=== PATIENT | female | born 1945 | race Caucasian/White ===

== ENCOUNTER 2017-07-12 07:41 | Day surgery (SDC) | payer MEDICARE, SELFPAY ==
[2017-07-12 08:02] VITALS: BP 143/80; PULSE 71; RESP 16; TEMP 36.9; O2SAT 97; BMI 20.5
--- NOTE | 2017-07-12 09:30 | H&P.OPEN ---
Past Medical/Surgical History - Planned Operation Planned Operative Procedure/s: colonoscopy/open access Date of Operative Procedure: 07/12/17 Permit Signed: No S.O.S: No Is This Patient Having a Total Joint: No - Previous Hospitalizations/Surgeries HX Hospitalizations: Yes HX of Surgeries: gallbladder 2012. lumpectomy left breast. colonoscopy 2011. hospitalized for chest pain 05/2016. left eye detached retina. port placement. port removed Any Problems With Anesthesia: Yes - slow to awaken You/Your Family Experience Fever (Hyperthermia) With Anes: No Cholinesterase deficiency: No - Cardiovascular Hx Chest Pain within Last 2 months: No Hx of Irregular Heartbeat and/or Afib: No Hx Heart Attack: No Hx Congestive Heart Failure: No Hx Rheumatic Fever: No Hx Hypertension: No Hx Internal Defibrillator: No Hx Pacemaker: No Hx Cardiac Catheterization: No Hx Cardiac Surgery/Stents/Etc.: No Hx Stress Test: Yes - 2016 and echo 2016 HX Edema: No Hx Pain in Legs when Walking/Leg Cramps: Yes - leg cramps in the past - Respiratory Chronic Cough: No HX of Shortness of Breath: No Hoarseness: No Hx Chronic Obstructive Pulmonary Disease (COPD): No Hx Asthma: No Hx Emphysema: No Hx Sleep Apnea: No Hx Oxygen Use at Home: No Hx Respiratory Tract Infection/Cold (presently): No Do You Snore Loudly (louder than talking or can be heard): No Do You Often Feel Tired/ Fatigued/ Sleepy Dring Daytime?: Yes Has Anyone Observed You Stop Breathing During Sleep?: No Result (for STOP score): Negative Hx Smoking: No Smoking Status: Never smoker - Gastrointestinal Hx Gastroesophageal Reflux: No Hx Gastrointestinal Disorders: Yes - ibs Hx Gastrointestinal Bleed: No Hx Ulcer: No Hx Hiatal Hernia: No Difficulty Chewing/Swallowing: No Recent Onset of Swallowing Problems: No Special diet followed at home: No Hx Unplanned Weight Loss of 20#: No HX Unplanned Weight Gain of 20#: No - Neurological Hx Seizures: No HX Syncope/Blackout Spells/Unconsciousness: No Hx CVA/Stroke: No Hx Transient Ischemic Attacks (TIA): No Hx Multiple Sclerosis: No Hx Parkinson's Disease: No Hx Head/Neck Injury: No Hx Headaches: No Hx Back Injury/Pain: Yes - chronic backaches in the past Recent Onset of Speech Difficulty: No Restless Legs: No Does patient have nerve stimulator: No Patient instructed to have device shut off: No Rep notified?: No - Blood Disorder Hx Leukemia: No Bleeding Tendencies: No Hx Deep Vein Thrombosis: No Hx High Cholesterol: Yes Blood Transmitted Disease: No Hx Hepatitis: No Hx Cirrhosis: No Hx Anemia: No Hx Blood Disorders: No - Reproduction Is Patient Lactating: No Hx Hysterectomy: No Hx Tubal Ligation: No Are You Post Menopause: Yes - Genitourinary Hx Renal Disease: No Hx Dialysis: No - Musculoskeletal Hx Arthritis: Yes Hx Rheumatoid Arthritis: No Hx Gout: No Recent Onset of an Orthopedic Problem: No - Endocrine Hx Diabetes: No Thyroid Disease: No Hx Steroid Therapy: No - Psycho/Social Hx Substance Use: No Hx Alcohol Use: No Hx Anxiety: No Hx Depression: No Mental Illness: No Hx Dementia: No - Miscellaneous Hx Cancer: Yes - LT BREAST CA - LT LUMPECTOMY Recent Exposure to Contagious Disease: No Active MRSA: No Hx of C-Diff: No Any Loose Teeth: No Allergies acetaminophen [From Darvocet-N] Allergy (Verified 06/11/17 15:05) Hives celecoxib [From Celebrex] Allergy (Verified 06/11/17 15:05) Hives codeine Allergy (Verified 07/08/17 13:22) Hives doxycycline Allergy (Verified 07/08/17 13:22) Hives latex Allergy (Verified 07/08/17 13:22) Hives metronidazole [From Flagyl] Allergy (Verified 07/08/17 13:22) Hives nitrofurantoin [From Macrobid] Allergy (Verified 07/08/17 13:22) Hives nitrofurantoin macrocrystalline [From Macrobid] Allergy (Verified 07/08/17 13:22) Hives oseltamivir Allergy (Verified 07/08/17 13:22) Hives oseltamivir phosphate [From Tamiflu] Allergy (Verified 07/08/17 13:22) Hives Penicillins Allergy (Verified 07/08/17 13:22) Hives propoxyphene napsylate [From Darvocet-N] Allergy (Verified 07/08/17 13:22) Hives sulfur dioxide Allergy (Verified 07/08/17 13:22) Hives tolterodine tartrate [From Detrol] Allergy (Verified 07/08/17 13:22) Hives Home Medications Medication Instructions Recorded Aspirin E.C. [Ecotrin] 81 mg PO QHS 09/08/15 Biotin 1,000 mcg PO DAILY 09/08/15 black cohosh 200 mg capsule 200 mg PO QDAY 06/28/17 cholecalciferol (vitamin D3) 1,000 1,000 unit PO DAILY 06/28/17 unit capsule multivitamin capsule 1 cap PO QAM 06/28/17 Maternal Family History: Family History (Last Updated 06/28/17 @ 14:54 by Kaleigh Mackey) Father Heart disease Mother Hypertension CVA (cerebral vascular accident) No pertinent history - Discharge Is Pt Admitted From a Intermediate, or a Snf: No Who Could Help: family After D/C, Where Do you Plan to Go: Return Home - From the PAT History Number of Risk Factors: 3 - Physical Exam General: Alert, Oriented x3, Cooperative Lungs: Normal air movement Cardiovascular: Regular rate, Regular Rhythm Abdomen: Soft, Non Tender, Non-Distended Vital Signs Temp Pulse Resp BP Pulse Ox 98.5 F 71 16 143/80 H 97 07/12/17 08:02 07/12/17 08:02 07/12/17 08:02 07/12/17 08:02 07/12/17 08:02 Oxygen Delivery Method Room Air Weight: 112 lb 3.445 oz Body Mass Index (BMI) 20.5 Assessment/Plan 71-year-old female with history of colon polyps here for screening colonoscopy 1. The patient reports her last colonoscopy was 5 years ago and they did find polyps and it was recommended that she repeat in 5 years. She is having no abdominal pain or blood in her stool at this time. No on explain weight loss. She has no family history of colon cancer. 2. I explained endoscopy in detail to the patient. I explained the risks including but not limited to stroke or heart attack with anesthesia, perforation of the GI tract, bleeding, infection. I explained that any of these could necessitate further emergency surgery. The patient understands and all questions were answered sufficiently. The patient wishes to proceed with procedure. Cullen Monroe MD Pager: [facility] [address], [address] [place] [address] Office: Surgery Risks - Colonoscopy Risks Include but are not Limited To: Risks include but are not limited to: Bleeding, perforation requiring further surgery, inability to complete colonoscopy requiring barium enema.
--- NOTE | 2017-07-12 09:58 | PCM.OPRPT ---
Problem List (1) Screen for colon cancer Status: Acute (2) History of colon polyps Status: Acute Report of Operation Date of Procedure: 07/12/17 Pre-Operative Diagnosis: Screening colonoscopy and personal history of colon polyps Post-Operative Diagnosis: Normal colonoscopy Surgery/Procedure Performed:: Colonoscopy Description of Procedure: The major risks and benefits associated with the procedure were explained to the patient in detail. The patient verbalized understanding and agreement with the same. The patient was brought to the endoscopy suite. After adequate sedation was achieved, the patient was placed in the left lateral decubitus position and a digital rectal exam was performed. This examination was within normal limits. A well-lubricated colonoscope was then inserted into the rectum and advanced under direct visualization to the level of the cecum. The bowel prep was good. The cecum was identified by both visual and anatomic landmarks. A photograph was taken of the end of the cecum. The scope was then fully withdrawn while examining the color, texture, anatomy and integrity of the mucosa from the cecum to the anal canal. The findings were consistent with normal colonic mucosa. Over 6 minutes were taken to examine the colonic mucosa. Upon reaching the rectum the scope was retroflexed to examine the distal rectal vault. The scope was then straightened and was completely retrieved upon exiting the anal canal and the procedure was terminated. The patient was then transferred to the recovery room in stable condition. Recommendations for follow up: 10 years of still in good health
[2017-07-12 09:59] VITALS: BP 143/80; BP 153/103; PULSE 71; RESP 18; TEMP 36.3; O2SAT 100
[2017-07-12 10:05] VITALS: BP 112/57; BP 143/80; PULSE 64; RESP 18; O2SAT 100
[2017-07-12 10:10] VITALS: BP 108/93; BP 143/80; PULSE 67; RESP 18; O2SAT 100
[2017-07-12 10:15] VITALS: BP 123/95; BP 143/80; PULSE 69; RESP 18; TEMP 36.6; O2SAT 100
[2017-07-12 10:36] VITALS: BP 143/80
== END 2017-07-12 10:40 | disposition home or self-care (01) ==
LOC: EN 07:42 → AC 07:43
PROVIDERS: Family Provider Internal Medicine; PCP Internal Medicine; Visit Provider Surgery
PROC: 0DJD8ZZ Inspection of Lower Intestinal Tract, Via Natural or Artificial Opening Endoscopic (ICD-10-PCS; CPT 45378; principal; 2017-07-12 08:55)
DX: Z12.11 Encounter for screening for malignant neoplasm of colon (principal); Z86.010 Personal history of colon polyps; K58.9 Irritable bowel syndrome, unspecified; E78.00 Pure hypercholesterolemia, unspecified; M19.90 Unspecified osteoarthritis, unspecified site; Z85.3 Personal history of malignant neoplasm of breast; Z79.82 Long term (current) use of aspirin
CPT/HCPCS: G0105; J7120

== ENCOUNTER → 2018-02-02 12:41 | Outpatient (CLI) | payer MEDICARE, SELFPAY ==
--- NOTE | 2018-02-02 12:52 | RAD_ITS ---
STUDY: X-RAY - LEFT ANKLE REASON FOR EXAM: Female, 72 years old. Pain. TECHNIQUE: 3 view(s) of the ankle. COMPARISON: None. FINDINGS: Normal visualized distal tibia and fibula. Mild spurring of the medial malleolus Normal tibiotalar articulation and ankle mortise. Normal visualized talus and calcaneus. The visualized subtalar, talonavicular, calcaneocuboid and tarsal articulations are normal. There is no demonstrated fracture. The soft tissue structures are unremarkable. RAD/Ankle min 3 Views IMPRESSION: No fracture seen. Mild spurring. Electronically Signed: Quan Kenyon MD at 14:19 EDT , Service support ,
--- NOTE | 2018-02-02 13:35 | RAD_ITS ---
STUDY: X-RAY - LEFT FOOT CLINICAL: Female, 72 years old. Pain. TECHNIQUE: 3 view(s) of the foot. COMPARISON: None. FINDINGS: Normal talus, calcaneus, and tarsal bones. Normal visualized subtalar, talonavicular, calcaneocuboid, tarsal and tarsometatarsal articulations. Normal metatarsi. There is degenerative arthrosis of the metatarsophalangeal joint of the hallux with a hallux valgus deformity. Normal tibial and fibular sesamoid bones. Normal interphalangeal joint of the great toe. Normal phalanges of the great toe. Normal second through fifth metatarsophalangeal joints. Normal interphalangeal joints and phalanges of the lesser toes. The soft tissue structures are unremarkable. There is no demonstrated fracture. RAD/Foot min 3 Views IMPRESSION: No fracture. There are arthritic changes with hallux valgus. Electronically Signed: Quan Kenyon MD at 14:20 EDT , Service support ,
== END ==
PROVIDERS: Family Provider Internal Medicine; PCP Internal Medicine; Referring Provider Physician Assistant Medical; Visit Provider Physician Assistant Medical
DX: M79.672 Pain in left foot (principal)
CPT/HCPCS: 73610; 73630

== ENCOUNTER → 2018-02-05 09:06 | Outpatient (CLI) | payer MEDICARE, SELFPAY ==
--- NOTE | 2018-02-05 09:10 | VDLE_ITS ---
Reason For Study: LLE Swelling RIGHT LEFT CFV is compressible, spontaneous, phasic, GSV is normal. competent and demonstrates normal CFV is compressible, spontaneous, phasic, augmentation. competent, and demonstrates normal Procedure augmentation. Exam performed in department. FV is compressible, spontaneous, phasic, A preliminary report was called and/or faxed competent and demonstrates normal to Dr. Valenzuela. augmentation. POP V is compressible, spontaneous, phasic, competent and demonstrates normal augmentation. T/P Trunk is compressible. PTV is compressible. LT PerV is compressible. Lt Pop Fossa hypoechoic structure measuring 1.37 x 0.94 x 2.69 cm. <> Interpretation Summary Deep veins of the left lower extremity are patent and compressible segmentally. There is no evidence of left lower extremity deep vein thrombosis. Valvular competence appears intact within the proximal deep venous system on the left . The left greater saphenous vein appears patent and compressible segmentally. A non-vascular, hypoechoic structure is noted in the left popliteal space, measuring 1.37 cm x 0.94 cm x 2.69 cm. This probably represents a popliteal cyst. Clinical correlation is advised. Ordering Physician: Zac Valenzuela Referring Physician: Zac Valenzuela Performed By: Marielena Ag RVT and Student
== END ==
PROVIDERS: Family Provider Family Medicine; PCP Family Medicine; Referring Provider Family Medicine; Visit Provider Family Medicine
DX: M79.89 Other specified soft tissue disorders (principal)
CPT/HCPCS: 93971

== ENCOUNTER → 2019-12-24 11:50 | Outpatient (CLI) | payer MEDICARE, SELFPAY ==
--- NOTE | 2019-12-24 11:52 | BI_ITS ---
MAMMOGRAPHY - BILATERAL SCREENING REASON FOR EXAM: Female, 74 years old. Routine annual screening examination. PERTINENT HISTORY: Personal history of breast cancer. Prior left lumpectomy and radiation therapy. Mother with breast cancer. TECHNIQUE: Digital bilateral breast leonela (3D mammographic acquisition) in the CC and MLO projections. 2-D mediolateral oblique (MLO) and craniocaudad (CC) views of both breasts were obtained. CAD: Full Field Digital Mammography with Computer Added Detection was performed. COMPARISON: Comparison is made with prior examination dated 06/27/2018. FINDINGS: Breast Composition: The breasts are heterogeneously dense, which may obscure small masses. There are no dominant masses or suspicious calcifications. The patient is status post left lumpectomy with postoperative period left breast is smaller than the right. This is stable. No other significant abnormalities are identified. There has been no significant change since the prior study. BI/SCREEN MAMM (CAD) W/LEONELA BILAT IMPRESSION: Stable bilateral screening mammogram. Yearly follow-up mammogram recommended. (A) ASSESSMENT CATEGORY: BIRADS Category 2: Benign. A letter regarding these results will be sent to the patient by the facility within 30 days. Approximately 10% of breast cancers are not detected by mammography. A normal mammogram should not delay biopsy of a clinically suspicious abnormality. [id number] Electronically Signed: Joe Faye, at 12:37 EDT , Service support ,
== END ==
PROVIDERS: PCP Family Medicine; Referring Provider Obstetrics & Gynecology; Visit Provider Obstetrics & Gynecology
DX: Z12.31 Encounter for screening mammogram for malignant neoplasm of breast (principal)
CPT/HCPCS: 77063; 77067

== ENCOUNTER → 2021-01-18 11:47 | Outpatient (CLI) | payer MEDICARE, SELFPAY ==
--- NOTE | 2021-01-18 12:09 | BI_ITS ---
MAMMOGRAPHY - BILATERAL SCREENING REASON FOR EXAM: Female, 75 years old. Routine annual screening examination. PERTINENT HISTORY: Personal history of breast cancer. Prior left lumpectomy and radiation therapy. Mother with breast cancer. TECHNIQUE: Digital bilateral breast leonela (3D mammographic acquisition) in the CC and MLO projections. 2-D mediolateral oblique (MLO) and craniocaudad (CC) views of both breasts were obtained. CAD: Full Field Digital Mammography with Computer Added Detection was performed. COMPARISON: Comparison is made with prior study dated 12/24/2019 and 01/02/2017. FINDINGS: Breast Composition: The breasts are heterogeneously dense, which may obscure small masses. There are no dominant masses or suspicious calcifications. Once again, the patient is status post left lumpectomy with postoperative changes and decreased size of the left breast. There has been no change. No other significant abnormalities are identified. There has been no significant change since the prior study. BI/SCRN MAMM (CAD)W/LEONELA BILAT IMPRESSION: Stable bilateral screening mammogram. Yearly follow-up mammogram recommended. (A) ASSESSMENT CATEGORY: BIRADS Category 2: Benign. A letter regarding these results will be sent to the patient by the facility within 30 days. Approximately 10% of breast cancers are not detected by mammography. A normal mammogram should not delay biopsy of a clinically suspicious abnormality. [id number] Electronically Signed: Joe Faye MD at 13:54 EDT , Service support ,
== END ==
PROVIDERS: PCP Family Medicine; Referring Provider Family Medicine; Visit Provider Family Medicine
DX: Z12.31 Encounter for screening mammogram for malignant neoplasm of breast (principal)
CPT/HCPCS: 77063; 77067

== ENCOUNTER → 2022-02-02 | Outpatient (CLI) | payer MEDICARE, SELFPAY ==
--- NOTE | 2022-02-02 13:25 | BI_ITS ---
MAMMOGRAPHY - BILATERAL SCREENING REASON FOR EXAM: Female, 76 years old. Routine annual screening examination. PERTINENT HISTORY: Personal history of breast cancer. Prior left lumpectomy and radiation therapy. Mother with breast cancer. TECHNIQUE: Digital bilateral breast leonela (3D mammographic acquisition) in the CC and MLO projections. 2-D mediolateral oblique (MLO) and craniocaudad (CC) views of both breasts were obtained. CAD: Full Field Digital Mammography with Computer Added Detection was performed. COMPARISON: Comparison is made with prior examination 01/18/2021 and 12/24/2019. FINDINGS: Breast Composition: The breasts are heterogeneously dense, which may obscure small masses. There are no dominant masses or suspicious calcifications. Impression status post left lumpectomy with postoperative changes. No other significant abnormalities are identified. There has been no significant change since the prior study. BI/SCRN MAMM (CAD)W/LEONELA BILAT IMPRESSION: Stable bilateral screening mammogram. Yearly follow-up mammogram recommended. (A) ASSESSMENT CATEGORY: BIRADS Category 2: Benign. A letter regarding these results will be sent to the patient by the facility within 30 days. Approximately 10% of breast cancers are not detected by mammography. A normal mammogram should not delay biopsy of a clinically suspicious abnormality. [id number] Electronically Signed: Joe Faye MD at 14:08 EDT ,
== END | disposition home or self-care (01) ==
LOC: OPBI 13:24
PROVIDERS: PCP Family Medicine; Referring Provider Obstetrics & Gynecology; Visit Provider Obstetrics & Gynecology
DX: Z12.31 Encounter for screening mammogram for malignant neoplasm of breast (principal)
CPT/HCPCS: 77063; 77067

== ENCOUNTER → 2023-02-06 | Outpatient (CLI) | payer MEDICARE, SELFPAY ==
--- NOTE | 2023-02-06 12:15 | BI_ITS ---
MAMMOGRAPHY - BILATERAL SCREENING REASON FOR EXAM: Female, 77 years old. Routine annual screening examination. PERTINENT HISTORY: Personal history of breast cancer. Prior left lumpectomy. Mother with breast cancer. TECHNIQUE: Digital bilateral breast leonela (3D mammographic acquisition) in the CC and MLO projections. 2-D mediolateral oblique (MLO) and craniocaudad (CC) views of both breasts were obtained. CAD: Full Field Digital Mammography with Computer Added Detection was performed. COMPARISON: Comparison is made with prior study dated January 25, 2022 and January 18, 2021. FINDINGS: Breast Composition: The breasts are heterogeneously dense, which may obscure small masses. There are no dominant masses or suspicious calcifications. Prior left lumpectomy with stable postoperative changes. No other significant abnormalities are identified. There has been no significant change since the prior study. BI/SCRN MAMM (CAD)W/LEONELA BILAT IMPRESSION: Stable bilateral screening mammogram. Yearly follow-up mammogram recommended. (A) ASSESSMENT CATEGORY: BIRADS Category 2: Benign. A letter regarding these results will be sent to the patient by the facility within 30 days. Approximately 10% of breast cancers are not detected by mammography. A normal mammogram should not delay biopsy of a clinically suspicious abnormality. [id number] Electronically Signed: Joe Faye MD at 13:36 EDT ,
== END | disposition home or self-care (01) ==
LOC: OPBI 12:13
PROVIDERS: PCP Family Medicine; Referring Provider Family Medicine; Visit Provider Family Medicine
DX: Z12.31 Encounter for screening mammogram for malignant neoplasm of breast (principal)
CPT/HCPCS: 77063; 77067

== ENCOUNTER 2023-07-21 11:36 | Emergency (ER) | payer MEDICARE, SELFPAY ==
[2023-07-21 11:37] VITALS: BP 179/86; PULSE 85; RESP 16; TEMP 36.3; O2SAT 96; BMI 22.2
--- NOTE | 2023-07-21 11:53 | EKG12_ITS ---
Test Reason : CP Blood Pressure : / mmHG Vent. Rate : 075 BPM Atrial Rate : 075 BPM P-R Int : 158 ms QRS Dur : 082 ms QT Int : 364 ms P-R-T Axes : 042 042 060 degrees QTc Int : 406 ms Normal sinus rhythm Normal ECG Confirmed by BLANK LYNN, CHANI ([id number]), online content editor DANETTE JONES ([id number]) on 07/22/2023 11:23:53 AM Referred By: SHERRY/OK Confirmed By:CHANI PARSON MD
[2023-07-21] MEDS: Aspirin 81 MG TAB.CHEW 324 MG PO (12:04)
[2023-07-21 12:07] LABS: Absolute Lymphocyte Count 1.65 X10^3/uL (0.83-4.51); Absolute Neutrophil Count 3.3 X10^3/uL (2.0-7.7); Basophil# 0.03 X10^3/uL; Basophil% 0.5 % (0-1); Eosinophil# 0.08 X10^3/uL; Eosinophils% 1.4 % (0-5); Hematocrit 43.4 % (37-47); Hemoglobin 14.2 g/dL (12.0-15.0); Lymphocyte # 1.65 X10^3/ul (0.83-4.51); Lymphocyte % 29.9 % (19-41); Mean Corp Hgb Conc 32.7 g/dL (32-36); Mean Corpuscular Hgb 31.2 pg (27.0-32.0); Mean Corpuscular Volume 95.4 fL (81-99); Mean Platelet Vol. 9.4 fl (6.2-12.0); Monocyte# 0.46 X10^3/uL; Monocyte% 8.3 % (0-10); NRBC Flagged by Analyzer 0 % (0-5); Neutrophil # 3.29 X10^3/uL (2.7-7.7); Neutrophil % 59.7 % (47-70); Platelet Count 264 K/mm3 (150-450); RBC Distribution Width SD 42.1 fl (35.1-43.9); Red Blood Count 4.55 M/mm3 (4.2-5.4); White Blood Count 5.5 K/mm3 (4.4-11.0)
--- NOTE | 2023-07-21 12:07 | RAD_ITS ---
STUDY: X-RAY CHEST REASON FOR EXAM: Female, 77 years old. Chest pain TECHNIQUE: Single AP portable view of the chest. COMPARISON: None. FINDINGS: The lungs are clear and expanded. There is no demonstrated pleural abnormality. Normal size heart. There are calcified mediastinal and left hilar lymph nodes. Normal visualized pulmonary arteries. There is atherosclerotic calcification of the aortic arch with tortuosity. There is demineralization of the osseous structures. Normal visualized ribs, clavicles, and shoulders. There is no demonstrated abnormality of the visualized soft tissue structures of the upper abdomen. RAD/Chest 1 View (Portable) IMPRESSION: Degenerative changes, as described above. No demonstrated acute cardiopulmonary process. Electronically Signed: Quan Kenyon MD at 12:27 EDT ,
[2023-07-21 12:30] LABS: Anion Gap 6 (5-15); BUN 12 mg/dL (7-18); BUN/Creat Ratio 14.6 RATIO (10-20); Calcium,Total 9.7 mg/dL (8.5-10.1); Chloride 108 mmol/L (98-107); Creatinine, Serum 0.82 mg/dL (0.55-1.02); EST Glomerular Filtration Rate 72 mL/min (>60); Est Glom Filt Rate - Afr Amer 87 mL/min (>60); Estimated Creatinine Clearance 44.04 ml/min; Glucose 90 mg/dL (74-106); Potassium 3.7 mmol/L (3.5-5.1); Sodium Level 145 mmol/L (136-145); Troponin-I HS (w/2H Reflex) 33 pg/mL (3.0-54.0)
[2023-07-21 12:36] VITALS: BP 155/84; PULSE 83; RESP 16; O2SAT 98
[2023-07-21] MEDS: Ondansetron 4 MG/2 ML Vial IV (12:59)
[2023-07-21] MEDS: Mag Hydrox/Al Hydrox/Simeth 30 ML UDC PO (12:59)
[2023-07-21 13:00] VITALS: BP 164/85; PULSE 79; RESP 13; O2SAT 98
[2023-07-21 13:50] VITALS: BP 156/80; PULSE 64; RESP 18; TEMP 36.7; O2SAT 98
--- NOTE | 2023-07-21 13:50 | ED.VIS.CHEST ---
HPI History of Present Illness Chief Complaint: Chest Pain Narrative Narrative: 77-year-old female presenting with chest pain. Started about 5 to 6 PM last evening. She describes it as pressure and burning as well as associated symptoms of dyspepsia and mild nausea. Patient states that just prior to this she had eaten some pizza. She does not have a significant history of GERD that severe. Patient states the pain is been present all last evening and through the morning and has not gone away. No history of cardiac disease. She does have history of hyperlipidemia, hypothyroidism. Denies fevers or chills. Denies cough. She states she felt short of breath when the pain was at its worst. No history of DVT/PE and no risk factors. [facility] Medical History (Updated 07/21/23 @ 11:50 by Lily Aponte) Arthritis Back pain High cholesterol History of breast cancer History of pneumonia Hypothyroid IBS (irritable bowel syndrome) Incontinence Home Medications aspirin 81 mg tablet,delayed release 81 mg PO QHS 09/08/15 [History Last Taken 07/06/17 1] biotin 800 mcg tablet 1,000 mcg PO DAILY 09/08/15 [History Last Taken 06/03/16] black cohosh 200 mg capsule 200 mg PO QDAY 06/28/17 [History Last Taken Unknown] cholecalciferol (vitamin D3) 25 mcg (1,000 unit) capsule 1,000 unit PO DAILY 06/28/17 [History Last Taken Unknown] multivitamin 1 cap PO QAM 06/28/17 [History Last Taken Unknown] Lactobacillus acidophilus 1 billion cell capsule (Probiotic Gold Acidophilus) 10 mg PO DAILY 01/29/18 [History Last Taken Unknown] atorvastatin 10 mg tablet mg PO 02/02/22 [History Last Taken Unknown] levothyroxine 25 mcg tablet mcg PO 02/02/22 [History Last Taken Unknown] omeprazole 40 mg capsule,delayed release 40 mg PO DAILY #30 caps 07/21/23 [Rx Last Taken Unknown] Allergy/AdvReac Type Severity Reaction Status Date / Time acetaminophen Allergy Hives Verified 07/21/23 11:37 [From Darvocet-N] celecoxib [From Celebrex] Allergy Hives Verified 07/21/23 11:37 codeine Allergy Hives Verified 07/21/23 11:37 doxycycline Allergy Hives Verified 07/21/23 11:37 latex Allergy Hives Verified 07/21/23 11:37 metronidazole [From Flagyl] Allergy Hives Verified 07/21/23 11:37 nitrofurantoin Allergy Hives Verified 07/21/23 11:37 [From Macrobid] nitrofurantoin Allergy Hives Verified 07/21/23 11:37 macrocrystalline [From Macrobid] oseltamivir Allergy Hives Verified 07/21/23 11:37 oseltamivir phosphate Allergy Hives Verified 07/21/23 11:37 [From Tamiflu] Penicillins Allergy Hives Verified 07/21/23 11:37 propoxyphene napsylate Allergy Hives Verified 07/21/23 11:37 [From Darvocet-N] sulfur dioxide Allergy Hives Verified 07/21/23 11:37 tolterodine tartrate Allergy Hives Verified 07/21/23 11:37 [From Detrol] Family History Father Heart disease Mother Hypertension CVA (cerebral vascular accident) Surgical History History of cholecystectomy History of colonoscopy Hx of lumpectomy Social History Smoking Status: Never smoker alcohol intake: never substance use type: does not use what type of physical activity do you participate in: weight training frequency: daily ROS ROS ED Constitutional Constitutional ED: Denies chills, fever(s) or sweats Eyes Eyes: Denies blurry vision or change in vision ENT ENT ED: Denies ear pain or sore throat Cardiovascular Cardiovascular: Reports as per HPI; Denies chest pain, palpitations or racing heartbeat Respiratory/Chest Respiratory/Chest: Denies cough, dyspnea or sputum Gastrointestinal Gastrointestinal: Reports nausea and other Details: Dyspepsia, burning ; Denies abdominal pain, constipation, diarrhea or vomiting Genitourinary Genitourinary ED: Denies dysuria, hematuria or urinary frequency Musculoskeletal Musculoskeletal: Denies arthralgias, myalgias or neck pain Integumentary Denies abscess, Abrasions or rash Neurologic Neurologic: Denies headache(s), paresthesias or weakness Psychiatric Psychiatric: Denies anxiety, depression, suicidal ideation or suicidal thoughts Endocrine Endocrinology: Denies polydipsia or polyuria EXAM Physical Exam Const Vital Signs: 07/21/23 11:37 07/21/23 11:44 07/21/23 12:01 Temperature 97.4 F L Temperature Source Temporal Pulse Rate 85 Respiratory Rate 16 Respiratory Effort Normal Non-Labored Respiratory Pattern Normal Blood Pressure 179/86 H Blood Pressure Mean 117 Pulse Ox 96 Oxygen Delivery Method Room Air Room Air 07/21/23 12:36 07/21/23 13:00 Temperature Temperature Source Pulse Rate 83 79 Respiratory Rate 16 13 Respiratory Effort Respiratory Pattern Blood Pressure 155/84 H 164/85 H Blood Pressure Mean 107 111 Pulse Ox 98 98 Oxygen Delivery Method Room Air Room Air Positive well nourished General Appearance ED: NAD; Negative for pallor HEENT Reports moist mucous membranes normocephalic Eyes PERRL and EOMs intact bilaterally General Eye ED: Negative for scleral icterus Resp normal respiratory effort and clear to auscultation bilaterally Auscultation: Negative for rales, rhonchi or wheezes Cardio regular rate and regular rhythm GI normal to inspection, nondistended, normoactive bowel sounds Neuro oriented x3 and CN's II-XII intact bilaterally Sensorium / Orientation: awake and alert Psych mental status grossly normal Skin General Skin Exam: Negative for jaundice or pallor Heart Score History: Slightly/Non-Suspicious ECG: Normal Age: >/= 65 years Risk Factors: 1 or 2 Risk Factors Troponin: </= Normal Limit Score: 3 MDM MDM MDM Narrative Medical decision making narrative: Patient presenting with dyspepsia, GERD symptoms. This been ongoing since last evening at about 5 or 6. Vital signs are stable she is afebrile. Differential includes ACS, GERD, pneumonia, gastric ulcer, dyspepsia, dehydration, anemia, electrolyte abnormalities. CBC was obtained to assess white blood cell count, hemoglobin, platelets. BMP to assess renal function, electrolytes, glucose. High-sensitivity troponin and EKG to assess for ischemia/dysrhythmia. BNP to assess for CHF. Chest x-ray to rule out pneumonia. CBC and BMP unremarkable. High-sensitivity troponin 33. EKG on my interpretation shows a normal sinus rhythm with a ventricular to 75 bpm without sign of ischemic change or ectopy on my interpretation. Chest x-ray on my interpretation shows no acute process. Given that patient has had symptoms all night into the morning and her troponin is still within normal limits I do not believe she is a delta troponin. BNP is normal. Patient was given GI cocktail. I think given she ate pizza prior to the onset of her symptoms is most likely acid reflux related. She does not have any pain over the gallbladder. Patient will be started on PPI and recommend she follow-up. She is also given list of foods to avoid in the short-term given her symptoms. Return precautions discussed. Impression: 1. Chest pain 2. Gastritis 3. Nausea Lab Data Attestation: I reviewed the patient's lab results. Labs: Laboratory Results - last 24 hr 07/21/23 12:00 WBC 5.5 RBC 4.55 Hgb 14.2 Hct 43.4 MCV 95.4 MCH 31.2 MCHC 32.7 RDW Std Deviation 42.1 RDW Coeff of Joe 12.0 Plt Count 264 MPV 9.4 Immature Gran % (Auto) 0.200 Neut % (Auto) 59.7 Lymph % (Auto) 29.9 [place] % (Auto) 8.3 Eos % (Auto) 1.4 Baso % (Auto) 0.5 Absolute Neuts (auto) 3.3 Absolute Lymphs (auto) 1.65 Nucleated RBC % 0 Sodium 145 Potassium 3.7 Chloride 108 H Carbon Dioxide 31.0 Anion Gap 6 BUN 12 Creatinine 0.82 Estim Creat Clear Calc 44.04 Est GFR (MDRD) Af Amer 87 Est GFR (MDRD) Non-Af 72 BUN/Creatinine Ratio 14.6 Glucose 90 Calcium 9.7 Troponin I High Sens 33 B-Natriuretic Peptide 44.0 Radiography Diagnostic Testing: Clinical Impression(s) from Imaging Studies Chest X-Ray 07/21/23 12:07 IMPRESSION: Degenerative changes, as described above. No demonstrated acute cardiopulmonary process. Electronically Signed: Quan Kenyon MD at 12:27 EDT , Discharge Plan Triage Chief Complaint: Chest Pain ED Provider: Enoc Murray Dx/Rx/DC Orders Instructions: ED Chest Pain, Noncardiac, ED GERD (Adult) Prescriptions: New omeprazole 40 mg capsule,delayed release(DR/EC) 40 mg PO DAILY Qty: 30 0RF No Action multivitamin capsule capsule 1 cap PO QAM black cohosh 200 mg capsule 200 mg PO QDAY cholecalciferol (vitamin D3) 1,000 unit capsule 1,000 unit PO DAILY Probiotic Gold Acidophilus 1 billion cell capsule 10 mg PO DAILY atorvastatin 10 mg tablet PO levothyroxine 25 mcg tablet PO biotin 800 MCG tablet 1,000 mcg PO DAILY Patient Comments: SUPPLEMENT aspirin 81 MG tablet 81 mg PO QHS Patient Comments: HEART HEATLH Primary Care Provider: Albina Romo Referrals: Albina Romo DO [Primary Care Provider] - Disposition Disposition: Home, Self Care
--- NOTE | 2023-07-21 13:52 | ED.RN ---
PER DR. POWELL VERBAL ORDER, DELTA TROPONIN CANCELLED. LAB NOTIFIED.
[2023-07-21 14:04] LABS: Reflex Troponin-HS? (from REC) Y
== END 2023-07-21 13:52 | disposition home or self-care (01) ==
PROVIDERS: Emergency Provider Student in an Organized Health Care Education/Training Program; PCP Internal Medicine; Visit Provider Student in an Organized Health Care Education/Training Program
DX: R07.9 Chest pain, unspecified (principal); K29.70 Gastritis, unspecified, without bleeding; R06.02 Shortness of breath
CPT/HCPCS: 71045; 80048; 83880; 84484; 85025; 93005; 96374; 99285; A4216; J2405

== ENCOUNTER → 2024-02-13 | Outpatient (CLI) | payer MEDICARE, SELFPAY | END | disposition home or self-care (01) | LOC: OPBD 13:21 | PROVIDERS: PCP Internal Medicine; Referring Provider Internal Medicine; Visit Provider Internal Medicine | DX: Z12.31 Encounter for screening mammogram for malignant neoplasm of breast (principal); Z78.0 Asymptomatic menopausal state | CPT/HCPCS: 77063; 77067; 77080 ==

== ENCOUNTER → 2024-02-21 | Outpatient (CLI) | payer MEDICARE, SELFPAY ==
--- NOTE | 2024-02-21 14:14 | US_ITS ---
STUDY: ULTRASOUND BREAST - RIGHT REASON FOR EXAM: Female, 78 years old. Abnormal screening mammogram. TECHNIQUE: Axial and longitudinal images of the RIGHT breast were performed with a high resolution ultrasound transducer. # OF IMAGES: 12 COMPARISON: Comparison is made with prior study February 13, 2024. FINDINGS: RIGHT Breast: The right axilla was examined with ultrasound. The mammographic abnormality corresponds to a 9 mm x 8 mm x 3 mm benign-appearing lymph node. US/Breast Limited Unilateral IMPRESSION: The mammographic abnormality corresponds to a 9 mm x 8 mm x 3 mm benign-appearing lymph node. ASSESSMENT CATEGORY: BIRADS Category 2: Benign. A letter regarding these results will be sent to the patient by the facility within 30 days. Electronically Signed: Joe Faye MD at 9:14 EST ,
== END | disposition home or self-care (01) ==
LOC: OPUS 14:13
PROVIDERS: PCP Internal Medicine; Referring Provider Internal Medicine; Visit Provider Internal Medicine
DX: R92.8 Other abnormal and inconclusive findings on diagnostic imaging of breast (principal)
CPT/HCPCS: 76642

== ENCOUNTER → 2024-10-26 | Outpatient (CLI) | payer MEDICARE, SELFPAY ==
--- NOTE | 2024-10-26 12:57 | ECHOD_ITS ---
Reason For Study Reason For Study: Other Procedure This was a 2D Doppler, Color Flow transthoracic echocardiogram. Exam performed in department. Left Ventricle Normal size and thickness. Redundant LV chord. The LV ejection fraction is 60 %. Normal diastology for age. Right Ventricle Normal right ventricle. Atria The left and right atria are normal. Mitral Valve Trivial mitral valve insufficiency. Tricuspid Valve Trivial tricuspid valve insufficiency. Normal pulmonary artery pressure. Aortic Valve Trisinus/trileaflet aortic valve. Pulmonic Valve Mild (1+) pulmonic valve insufficiency. Great Vessels Normal sized aortic root. Pericardium/Pleural No pericardial effusion. MMode/2D Measurements & Calculations LVIDd: 3.5 cm IVSd: 0.73 cm Ao root diam: 2.7 cm LVIDs: 2.2 cm LVPWd: 0.84 cm RVDd: 3.6 cm FS: 38.7 % LAV(MOD-bp): 26.2 ml LVAd ap4: 20.8 cm2 SV(MOD-sp4): 29.4 ml LAV(MOD-bp) Indexed: 17.2 ml/m2 LVLd ap4: 7.1 cm SI(MOD-sp4): 19.3 ml/m2 LAV(MOD-sp2): 27.0 ml EDV(MOD-sp4): 49.2 ml LAV(MOD-sp4): 25.6 ml EDV(sp4-el): 51.3 ml LVAs ap4: 12.1 cm2 LVLs ap4: 6.4 cm ESV(MOD-sp4): 19.8 ml ESV(sp4-el): 19.6 ml EF(MOD-sp4): 59.7 % EF(sp4-el): 61.8 % SV(sp4-el): 31.7 ml LA A4 area: 11.9 cm2 LA dimension(2D): 2.6 cm RA A4 area: 12.1 cm2 TAPSE: 1.8 cm Time Measurements MV dec time: 0.16 sec Doppler Measurements & Calculations MV E max cameron: 91.9 cm/sec Lat Peak E' Cameron: 7.6 cm/sec Med Peak E' Cameron: 8.4 cm/sec MV A max cameron: 105.2 cm/sec E/E' lat: 12.0 E/E' med: 11.0 MV E/A: 0.87 MV V2 max: 126.2 cm/sec MV P1/2t max cameron: 114.5 cm/sec Ao V2 max: 114.5 cm/sec MV max P.4 mmHg MV P1/2t: 59.8 msec Ao max P.2 mmHg MV V2 mean: 69.4 cm/sec Ao V2 mean: 79.0 cm/sec MV mean P.3 mmHg MV dec slope: 560.9 cm/sec2 Ao mean P.9 mmHg MV V2 VTI: 35.7 cm MVA(P1/2t): 3.7 cm2 Ao V2 VTI: 27.1 cm AV (velocity ratio): 0.76 LV V1 max: 86.3 cm/sec PA V2 max: 65.4 cm/sec PI end-d cameron: 99.8 cm/sec LV V1 max P.0 mmHg LV V1 mean P.8 mmHg LV V1 mean: 62.6 cm/sec LV V1 VTI: 20.5 cm TR max cameron: 231.1 cm/sec TR max P.4 mmHg ECHO/Echo Complete Interpretation Summary The LV ejection fraction is 60 %. Mild (1+) pulmonic valve insufficiency. Ordering Physician: Seth Cruz Referring Physician: Seth Cruz Performed By: Rainer Avendaño RCS
== END | disposition home or self-care (01) ==
LOC: CVS 12:56
PROVIDERS: PCP Hospitalist; Referring Provider Internal Medicine Cardiovascular Disease; Visit Provider Internal Medicine Cardiovascular Disease
DX: I51.89 Other ill-defined heart diseases (principal)
CPT/HCPCS: 93306

== ENCOUNTER → 2025-02-23 | Outpatient (CLI) | payer MEDICARE, SELFPAY ==
--- NOTE | 2025-02-23 14:50 | BI_ITS ---
EXAM: SCRN MAMM (CAD)W/LEONELA BILAT DATE: 02/23/2025 CLINICAL HISTORY: F, Age 79 y/o , SCREENING TECHNIQUE: Procedure Code: [id number] Modality: MG Procedure: SCRN MAMM (CAD)W/LEONELA BILAT COMPARISON: Prior exam(s) were compared FINDINGS: TISSUE DENSITY: The breasts are heterogeneously dense, which may obscure small masses. Bilateral Breast Mammographic Findings: No significant masses, calcifications or other abnormalities are identified. BI/SCRN MAMM (CAD)W/LEONELA BILAT IMPRESSION: No mammographic evidence of malignancy in either breast. OVERALL FINAL ASSESSMENT BI-RADS 1: NEGATIVE. RECOMMENDATION: Routine annual follow-up in 1 Year Additional Recommendation none A letter with findings and recommendations will be mailed to the patient. Reading Location: [id number]
== END | disposition home or self-care (01) ==
LOC: OPBI 14:49
PROVIDERS: PCP Hospitalist; Referring Provider Hospitalist; Visit Provider Hospitalist
DX: Z12.31 Encounter for screening mammogram for malignant neoplasm of breast (principal)
CPT/HCPCS: 77063; 77067